=== PATIENT | female | born 1975 | race Caucasian/White ===

== ENCOUNTER 2022-08-16 06:19 | Emergency (ER) | payer SELFPAY ==
[2022-08-16 06:24] VITALS: BP 198/108; PULSE 124; RESP 24; TEMP 36.9; O2SAT 96; BMI 28.3
[2022-08-16 06:26] VITALS: BP 165/108; PULSE 103; RESP 20; O2SAT 98
--- NOTE | 2022-08-16 06:27 | ECG_ITS ---
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 Measurements Intervals [place] Rate: 101 P: 57 MT: 149 QRS: 70 QRSD: 85 T: 66 QT: 346 QTc: 450 Interpretive Statements SINUS TACHYCARDIA No previous ECG available for comparison Electronically Signed On 08-16-2022 12:46:49 CDT by Palak Reinoso M.D. [id number] f
--- NOTE | 2022-08-16 06:28 | XRR_ITS ---
PROCEDURE INFORMATION: Exam: XR Chest Exam date and time: 08/16/2022 6:39 AM Age: 46 years old Clinical indication: Chest wall pain; Additional info: Chest pain TECHNIQUE: Imaging protocol: Radiologic exam of the chest. Views: 1 view. COMPARISON: No relevant prior studies available. FINDINGS: Lungs: Unremarkable. No consolidation. Pleural spaces: Unremarkable. No pleural effusion. No pneumothorax. Heart/Mediastinum: Unremarkable. No cardiomegaly. Bones/joints: Unremarkable. XR/XR chest 1V portable [id number] IMPRESSION: No acute findings.
--- NOTE | 2022-08-16 06:29 | W.ED.CHESTPA ---
HPI - Chest Pain General: Chief Complaint: Chest Pain Stated Complaint: chest pain Time Seen by Provider: 08/16/22 06:28 Source: patient Mode of arrival: ambulatory History of Present Illness: 46-year-old female presents emergency room complaining of chest discomfort. She refers it to the upper chest central and to the left side. There is no radiation into her neck but she does complain of some radiation into her arms. No nausea or vomiting or shortness of breath. Patient is quite tearful and anxious. Chest pain is reproducible with palpation across the upper chest. She had COVID about 4 to 5 weeks ago. She has not had any productive cough or fever. She does smoke she has no history of hypertension hyperlipidemia no family history of heart disease she is not diabetic. MD complaint: chest pain Onset (ago): hour(s) Timing of current episode: episodic Prior episodes: No Onset: during rest Pain location: left chest Pain radiation: right arm and left arm Severity: mild Quality: sharp Relieving factors: nothing Exacerbating factors: palpation Associated symptoms: Deny abdominal pain, diaphoresis, dyspnea, fever(s), leg edema, nausea, palpitations, sense of impending doom, syncope or vomiting Treatment prior to arrival: none Review of Systems Const: Denies: fever(s), chills, fatigue, malaise or diaphoresis ENMT: Denies: throat pain, ear or mastoid pain, nasal discharge or nasal congestion Card: Reports: chest pain; Denies: palpitations, irregular heart rhythm, edema or syncope Resp: Denies: dyspnea GI: Denies: abdominal pain, nausea or vomiting : Denies: flank pain, difficulty voiding, dysuria, urinary frequency or urinary urgency Musc: Denies: neck pain or back pain Skin/Breast: Denies: rash or pruritus PFS ED PFSH: Medical History No pertinent past medical history Surgical History Previous section Social History Smoking and tobacco status: current every day smoker Alcohol intake: never Physical Exam Const: COMMON NORMALS: no acute distress GENERAL APPEARANCE: cooperative and comfortable ORIENTATION/CONSCIOUSNESS: Yes awake, Yes oriented to person, Yes oriented to place and Yes oriented to time HENMT: COMMON NORMALS: normocephalic, atraumatic and hearing grossly normal bilaterally HEAD & SCALP: normocephalic and atraumatic Chest: CHEST: Yes localized rib tenderness with anteroposterior compression Resp: COMMON NORMALS: normal respiratory effort, No retractions, No use of accessory muscles and clear to auscultation bilaterally AUSCULTATION: clear to auscultation bilaterally Cardio: COMMON NORMALS: regular rate, regular rhythm and No murmurs present (Cardio) RATE: regular rate RHYTHM: regular rhythm GI: COMMON NORMALS: Soft to palpation and No hepatosplenomegaly present AUSCULTATION: Yes normoactive bowel sounds PALPATION: Yes Soft to palpation, No Tenderness to palpation present (GI), No Guarding due to palpation present (GI) and Yes No hepatosplenomegaly present Extremity: COMMON NORMALS: normal to inspection, capillary refill normal, no clubbing, cyanosis or edema, no calf tenderness and no pedal edema Neuro: SENSORIUM/ORIENTATION: Yes oriented to person, Yes oriented to place and Yes oriented to time Skin: COMMON NORMALS: no rashes or lesions noted GENERAL SKIN EXAM: no rashes or lesions noted Course Vital Signs: Vital signs: Vital Signs Temperature 98.4 F 08/16/22 06:24 Pulse Rate 82 08/16/22 09:49 Respiratory Rate 14 08/16/22 09:49 Blood Pressure 141/82 08/16/22 09:49 Pulse Oximetry 96 08/16/22 06:50 Oxygen Delivery Me thod 08/16/22 06:50 MDM - Chest Pain Medical Decision Making Troponins negative pain reproducible palpation. Discussed results with patient reviewed EKGs x-rays and imaging. Will discharge patient home set up outpatient stress test advised take baby aspirin daily return if is further problems. Medical Records I reviewed the patient's medical records. Lab Data I reviewed the patient's lab results. : 08/16/22 06:30 08/16/22 06:30 Radiology Impressions Chest X-Ray 08/16/22 06:28 IMPRESSION: No acute findings. Laboratory Results WBC 9.1 10^3/uL (4.0-10.0) 08/16/22 06:30 RBC 4.26 10^6/uL (4.1-5.3) 08/16/22 06:30 Hgb 11.9 g/dL (11.5-15.3) 08/16/22 06:30 Hct 37.4 % (37.0-47.0) 08/16/22 06:30 MCV 87.8 fl (81-99) 08/16/22 06:30 MCH 27.9 pg (28.0-34.0) L 08/16/22 06:30 MCHC 31.8 g/dL (30.0-36.0) 08/16/22 06:30 RDW 13.6 % (12.1-15.1) 08/16/22 06:30 Plt Count 477 10^3/cmm (130-400) H 08/16/22 06:30 MPV 10.0 fL (7.4-10.4) 08/16/22 06:30 Neut % (Auto) 65.9 % 08/16/22 06:30 Lymph % (Auto) 25.4 % 08/16/22 06:30 [place] % (Auto) 6.7 % 08/16/22 06:30 Eos % (Auto) 1.1 % 08/16/22 06:30 Baso % (Auto) 0.7 % 08/16/22 06:30 Neut # (Auto) 6.00 10^3/uL (1.8-7.7) 08/16/22 06:30 Lymph # (Auto) 2.3 10^3/uL (0.8-4.8) 08/16/22 06:30 [place] # (Auto) 0.6 10^3/uL (0.2-0.9) 08/16/22 06:30 Eos # (Auto) 0.1 10^3/uL (0.0-0.8) 08/16/22 06:30 Baso # (Auto) 0.1 10^3/uL (0.0-0.1) 08/16/22 06:30 Nucleated RBC % (auto) 0 % 08/16/22 06:30 Nucleated RBCs # 0.0 /100WBC 08/16/22 06:30 Sodium 137 mmol/L (136-145) 08/16/22 06:30 Potassium 3.5 mmol/L (3.5-5.1) 08/16/22 06:30 Chloride 102 mmol/L (98-107) 08/16/22 06:30 Carbon Dioxide 22 mmol/L (22-29) 08/16/22 06:30 Anion Gap 16.5 (5-19) 08/16/22 06:30 BUN 12 mg/dL (6-20) 08/16/22 06:30 Creatinine 0.9 mg/dL (0.5-0.9) 08/16/22 06:30 GFR Calculation 67.1 mL/min (90-130) L 08/16/22 06:30 Glucose 147 mg/dL (65-115) H 08/16/22 06:30 Calculated Osmolality 286 mOsm/kg (285-295) 08/16/22 06:30 Calcium 8.6 mg/dL (8.5-10.5) 08/16/22 06:30 Total Bilirubin 0.3 mg/dL (0.15-1.2) 08/16/22 06:30 AST 15 U/L (0-32) 08/16/22 06:30 ALT 20 U/L (0-33) 08/16/22 06:30 Alkaline Phosphatase 104 U/L (35-105) 08/16/22 06:30 Troponin T Baseline 21 ng/L (0-10) H 08/16/22 06:30 Troponin T 120 Minute 21.12 ng/L (0-10) H 08/16/22 08:25 Delta Troponin T 0.12 ABS# (0-10) 08/16/22 08:25 Total Protein 7.3 g/dL (6.6-8.7) 08/16/22 06:30 Albumin 4.2 g/dL (3.5-5.2) 08/16/22 06:30 Globulin 3.1 g/dL (1.3-4.6) 08/16/22 06:30 Discharge Plan Discharge Patient Disposition: Home Clinical Impression: Atypical chest pain Condition: Stable Prescriptions: No Action No Known Home Medications Discharge Orders: Discharge ED (Routine); Ordered 08/16/22 Ordered By: Rolan Faustin Discharge Diet: Usual diet Discharge Activity: Resume usual activity Patient Instructions: Opioid Safety, Pain Management Activity Restrictions/Additional Instructions: Avoid exertional activities and exercise until stress test is completed. client program manager will make arrangements for cardiac stress testing as an outpatient and to establish with a primary care physician. Coding Level of Care Code ED Molded Grid And Parts Inspector for Chg Fwd Exam Comprehensive
[2022-08-16 06:40] LABS: Basophils # 0.1 10^3/uL (0.0-0.1); Basophils % 0.7 %; Eosinophils # 0.1 10^3/uL (0.0-0.8); Eosinophils % 1.1 %; Hematocrit 37.4 % (37.0-47.0); Hemoglobin 11.9 g/dL (11.5-15.3); Lymphocytes # 2.3 10^3/uL (0.8-4.8); Lymphocytes % 25.4 %; Mean Corpuscular HGB Conc 31.8 g/dL (30.0-36.0); Mean Corpuscular Hemoglobin 27.9 pg (28.0-34.0); Mean Corpuscular Volume 87.8 fl (81-99); Monocytes # 0.6 10^3/uL (0.2-0.9); Monocytes % 6.7 %; Neutrophils % 65.9 %; Nucleated Red Blood Cells % 0 %; Platelet Count 477 10^3/cmm (130-400); Red Blood Count 4.26 10^6/uL (4.1-5.3); Red Cell Distribution Width 13.6 % (12.1-15.1); White Blood Count 9.1 10^3/uL (4.0-10.0)
[2022-08-16 06:50] VITALS: BP 164/109; RESP 18; O2SAT 96
[2022-08-16 07:00] LABS: Alanine Aminotransferase 20 U/L (0-33); Albumin Level 4.2 g/dL (3.5-5.2); Alkaline Phosphatase 104 U/L (35-105); Anion Gap 16.5 (5-19); Aspartate Amino Transferase 15 U/L (0-32); Blood Urea Nitrogen 12 mg/dL (6-20); Calcium 8.6 mg/dL (8.5-10.5); Carbon Dioxide 22 mmol/L (22-29); Chloride 102 mmol/L (98-107); Globulin 3.1 g/dL (1.3-4.6); Glomerular Filtration Rate 67.1 mL/min (90-130); Glucose 147 mg/dL (65-115); Osmolality Calculated 286 mOsm/kg (285-295); Potassium 3.5 mmol/L (3.5-5.1); Sodium 137 mmol/L (136-145); Total Bilirubin 0.3 mg/dL (0.15-1.2); Total Protein 7.3 g/dL (6.6-8.7); Troponin(5th) Baseline 21 ng/L (0-10)
[2022-08-16] MEDS: acetaminophen 325 mg Tablet 650 MG PO (08:12)
--- NOTE | 2022-08-16 08:28 | ECG_ITS ---
[facility] Test Date: 2022-08-16 Pat Name: Fouzia Yi Department: Room: Gender: Female Food Supervisor: : 1975 Requested By: Rolan Vora Order Number: [id number] Cobos MD: Palak Reinoso M.D. Measurements Intervals [place] Rate: 62 P: 17 ID: [id number] QRS: 59 QRSD: 81 T: 60 QT: 410 QTc: 418 Interpretive Statements SINUS RHYTHM Compared to ECG 08/16/2022 06:27:20 Sinus tachycardia no longer present Electronically Signed On 08-16-2022 20:41:23 CDT by Palak Reinoso M.D. [id number]
[2022-08-16 08:47] LABS: Troponin 5 2HR 21.12 ng/L (0-10)
[2022-08-16 08:49] LABS: Troponin 5 2HR Delta 0.12 ABS# (0-10)
[2022-08-16 09:49] VITALS: BP 141/82; PULSE 82; RESP 14
--- NOTE | 2022-08-17 10:19 | DCPLANNER ---
manager diabetes had message to schedule an outpatient stress test for patient. manager diabetes called to confirm that patient wanted to the stress test scheduled and to confirm who patient sees for primary care. manager diabetes called phone number [phone] unable to speak with patient at this time, a voicemail was left for patient to return window caser phone call.
== END 2022-08-16 09:51 | disposition home or self-care (01) ==
PROVIDERS: Emergency Provider Family Medicine
DX: R07.89 Other chest pain (principal); F17.200 Nicotine dependence, unspecified, uncomplicated
CPT/HCPCS: 71045; 80053; 84484; 85025; 93005; 99285

== ENCOUNTER 2023-01-29 13:09 | Emergency (ER) | payer OTHER, SELFPAY ==
[2023-01-29 13:24] VITALS: BP 162/115; PULSE 99; RESP 17; TEMP 36.8; O2SAT 96; BMI 29.2
--- NOTE | 2023-01-29 13:44 | W.ED.SKABFB ---
HPI - Skin/Abscess/Foreign Bdy General: Chief complaint: Skin/Abscess/Foreign Body Stated complaint: groin mass Time Seen by Provider: 01/29/23 13:37 Source: patient Mode of arrival: ambulatory Limitations: no limitations History of Present Illness: Patient is a nice 47-year-old female with a history of hydradenitis suppurativa here for an abscess near her right groin that she noticed about 48 hours ago. She states since yesterday the lesion has gotten incredibly painful. Patient states she is not on any prescription/suppressant medications at this time for the HS. complaint: abscess/boil Onset (ago): day(s) Tetanus up to date: yes Location: genitals (R groin) Severity: moderate Pain Consistency: constant Relieving factors: none Exacerbating factors: none Context: none Associated symptoms: Reports no associated symptoms; Deny fever(s), nausea or vomiting Treatments prior to arrival: other (warm compresses) Review of Systems Const: Denies: fever(s) GI: Denies: abdominal pain, nausea, vomiting or change in bowel habits : Denies: difficulty voiding, dysuria, urinary frequency or urinary urgency Skin/Breast: Reports: other (abscess R groin) PFS ED PFSH: Medical History No pertinent past medical history Surgical History Previous section Social History Smoking and tobacco status: current every day smoker Alcohol intake: never Physical Exam Const: COMMON NORMALS: no acute distress, patient oriented x3, no limitations, alert and well nourished : GENITAL IMAGES (FEMALE): 1. erythematous indurated very tender nodule noted to R of mons; no fluctuance/drainage Neuro: COMMON NORMALS: patient oriented x3 SENSORIUM/ORIENTATION: Yes alert Skin: NARRATIVE SKIN EXAM: see above Course Vital Signs: Vital signs: Vital Signs Temperature 98.3 F 01/29/23 13:24 Pulse Rate 99 01/29/23 13:24 Respiratory Rate 17 01/29/23 13:24 Blood Pressure 162/115 01/29/23 13:24 Pulse Oximetry 96 01/29/23 13:24 Oxygen Delivery Me thod 01/29/23 13:24 MDM - Skin/Abscess/Foreign Bdy Medicial Decision Making Recommend continuing warm compresses. We will go ahead and place on a tetracycline and give her pain medications. Lesion does not require I&D nor is this indicated for most HS lesions. Return to ED precautions given-otherwise I would like her to follow up with PCP this week. Discharge Plan Discharge Patient Disposition: Home Clinical Impression: Hidradenitis suppurativa Condition: Stable Prescriptions: New doxycycline monohydrate 100 mg capsule 100 mg PO Q12H 10 Days Qty: 20 0RF tramadol 50 mg tablet 50 mg PO Q6H PRN (Reason: pain) Qty: 14 0RF Discharge Orders: Discharge ED (Routine); Ordered 01/29/23 Ordered By: Marion Garcia Referrals: Dayana Toussaint FNP [Primary Care Provider] - Coding Level of Care Code ED Strategic Account Director for Anika Lovell
--- NOTE | 2023-01-29 14:11 | PC.NURSE ---
NOTIFIED PROVIDER RANJAN OF BP OF 163/115 VERBALIZED UNDERSTANDING NO FURTHER ORDERS.
== END 2023-01-29 14:12 | disposition home or self-care (01) ==
PROVIDERS: Emergency Provider Physician Assistant; PCP Nurse Practitioner Family
DX: L73.2 Hidradenitis suppurativa (principal); F17.210 Nicotine dependence, cigarettes, uncomplicated
CPT/HCPCS: 99283

== ENCOUNTER → 2023-08-02 08:04 | Outpatient (BNVA) | payer BC, SELFPAY | PROVIDERS: Visit Provider Family Medicine | DX: Z00.00 Encounter for general adult medical examination without abnormal findings | CPT/HCPCS: 80053; 80061; 83036; 84443; 85025 ==

== ENCOUNTER 2023-08-23 13:02 | Outpatient (CLI) | payer BC, SELFPAY ==
--- NOTE | 2023-08-23 13:13 | US_ITS ---
WS: [id number] ULTRASOUND SOFT TISSUES medial LEFT thigh. HISTORY: ENLARGING LUMP OF L THIGH/? LIPOMA COMPARISON: None available. TECHNIQUE: 2-D and color Doppler imaging is submitted. Ultrasound is directed to the palpable area along the medial LEFT thigh. Palpable area corresponds to a nearly isoechoic elliptical mass in the subcutaneous soft tissues. Mass measures 2.8 x 2.1 x 1.0 c m and is consistent with a lipoma. IMPRESSION: Palpable area along the medial LEFT thigh corresponds to a lipoma.
--- NOTE | 2023-08-23 13:13 | MM_ITS ---
WS: [id number] SCREENING DIGITAL BREAST TOMOSYNTHESIS MAMMOGRAM WITH CAD HISTORY: breast cancer screening COMPARISON: None available. Bilateral CC and MLO with tomosynthesis and synthetic mammography submitted. Computer aided detection analyzed. Breast composition: The breasts are heterogeneously dense, which may obscure small masses. Partially distorted mass measuring 10 x 16 mm in the anterior medial inferior RIGHT breast is identified. No ad ditional mass or distortion. No calcifications. IMPRESSION: MM/[place] [id number] BI-RADS: 0-Incomplete: Need additional imaging evaluation FOLLOW UP: Need Additional Imaging RIGHT breast: Spot compression views (CC and MLO). True ML. Ultrasound to follo w if abnormality persists.
== END 2023-08-23 13:03 | disposition home or self-care (01) ==
LOC: RAD 13:05
PROVIDERS: PCP Family Medicine; Visit Provider Family Medicine
DX: Z12.31 Encounter for screening mammogram for malignant neoplasm of breast (principal)
CPT/HCPCS: 76882; 77063; 77067

== ENCOUNTER 2023-10-11 07:46 | Outpatient (CLI) | payer BC, SELFPAY ==
--- NOTE | 2023-10-11 08:00 | MM_ITS ---
WS: [id number] ADDITIONAL VIEWS RIGHT MAMMOGRAM WITH DIGITAL BREAST TOMOSYNTHESIS. RIGHT BREAST ULTRASOUND HISTORY: 10 x 16 mm mass - anterior medial inferior COMPARISON: 08/23/2023 mammogram. RIGHT MAMMOGRAM: Spot compression views and true ML with digital breast tomosynthesis and SM. Mass persists in the anterior medial RIGHT breast near the 4:00 axis. Mass measures 13.8 x 11.2 cm. M argins are well visualized. Mass is best seen on the CC projection. Mass is slightly of increased den sity compared to the adjacent breast parenchyma. RIGHT BREAST ULTRASOUND 2-D and color Doppler imaging submitted. Solid hypoechoic mass with increased vascularity RIGHT breast, 1 cm from the nipple at 4:00. Mass is lobulated measuring 2.1 x 0.9 x 1.4 cm. There is an additional lobulation of similar echogenicity and solid component measuring 1.1 x 1.1 x 0.7 cm. This may be part of the larger mass or a separate abimael lar mass. IMPRESSION: MM/[place] [id number] BI-RADS: 4-Suspicious Finding-Biopsy Should Be Considered FOLLOW UP: Biopsy Recommended 1. 2 solid hypoechoic masses RIGHT breast at 4:00, 1 cm from the nipple. This m ay be a contiguous mass or 2 separate masses closely associated with each other . Recommend ultrasound-guided biopsy of each mass. Notified Brittney Kaye MD at 10/11/2023 8:59 AM.
--- NOTE | 2023-10-11 08:30 | US_ITS ---
WS: [id number] ADDITIONAL VIEWS RIGHT MAMMOGRAM WITH DIGITAL BREAST TOMOSYNTHESIS. RIGHT BREAST ULTRASOUND HISTORY: 10 x 16 mm mass - anterior medial inferior COMPARISON: 08/23/2023 mammogram. RIGHT MAMMOGRAM: Spot compression views and true ML with digital breast tomosynthesis and SM. Mass persists in the anterior medial RIGHT breast near the 4:00 axis. Mass measures 13.8 x 11.2 cm. M argins are well visualized. Mass is best seen on the CC projection. Mass is slightly of increased den sity compared to the adjacent breast parenchyma. RIGHT BREAST ULTRASOUND 2-D and color Doppler imaging submitted. Solid hypoechoic mass with increased vascularity RIGHT breast, 1 cm from the nipple at 4:00. Mass is lobulated measuring 2.1 x 0.9 x 1.4 cm. There is an additional lobulation of similar echogenicity and solid component measuring 1.1 x 1.1 x 0.7 cm. This may be part of the larger mass or a separate abimael lar mass. IMPRESSION: US/US breast RT limited* [id number] BI-RADS: 4-Suspicious Finding-Biopsy Should Be Considered FOLLOW UP: Biopsy Recommended 1. 2 solid hypoechoic masses RIGHT breast at 4:00, 1 cm from the nipple. This m ay be a contiguous mass or 2 separate masses closely associated with each other . Recommend ultrasound-guided biopsy of each mass. Notified Brittney Kaye MD at 10/11/2023 8:59 AM.
== END 2023-10-11 07:47 | disposition home or self-care (01) ==
LOC: RAD 07:47
PROVIDERS: PCP Family Medicine; Visit Provider Family Medicine
DX: N63.14 Unspecified lump in the right breast, lower inner quadrant (principal); R92.8 Other abnormal and inconclusive findings on diagnostic imaging of breast
CPT/HCPCS: 76642; 77061; G0279

== ENCOUNTER 2023-10-17 11:58 | Outpatient (CLI) | payer BC, SELFPAY ==
--- NOTE | 2023-10-17 13:45 | US_ITS ---
WS: [id number] ULTRASOUND-GUIDED RIGHT BREAST BIOPSY CLINICAL INFORMATION: birad 4 diagnostic mammo - 2 solid masses COMPARISON: 10/11/2023 FINDINGS: The procedure including risks, benefits, and complications were discussed with the patient who agreed to proceed. Using sterile technique patient was prepped and draped in the usual sterile fashion. Aft er 1% lidocaine utilizing real-time ultrasound guidance 5 14-gauge cores were obtained of the RIGHT b reast lesion at the 4 o'clock position. Subsequently a titanium clip was placed in the biopsy cavity. No immediate complications. Pathology demonstrates Final Diagnosis Right breast, 4:00 position, 1 cm from nipple, needle core biopsy: 1. Fibroadenomatoid lesion. 2. Microcalcifications are present. IMPRESSION: 1. Uncomplicated ultrasound-guided RIGHT breast biopsy. 2. The pathology demonstrates fibroadenoma with microcalcifications. No evidence of malignancy. 3. Recommend return to annual screening mammography. US/[place] [id number] BI-RADS: 2-Benign FOLLOW UP: 1 Year Follow-up
== END 2023-10-17 11:59 | disposition home or self-care (01) ==
LOC: RAD 11:58
PROVIDERS: PCP Family Medicine; Visit Provider Family Medicine
DX: D24.1 Benign neoplasm of right breast (principal); R92.0 Mammographic microcalcification found on diagnostic imaging of breast
CPT/HCPCS: 19083; 88305

== ENCOUNTER 2023-11-29 06:55 | Day surgery (SDC) | payer BC, SELFPAY ==
[2023-11-29 07:30] VITALS: BP 132/98; PULSE 96; RESP 16; TEMP 36.3; O2SAT 97
[2023-11-29] MEDS: sodium chloride 0.9% 1,000 ML 30 ML IV (07:40)
[2023-11-29 07:46] LABS: OR HCG Qualitative Urine Negative (Negative)
--- NOTE | 2023-11-29 07:53 | W.PM.OPSUD ---
Surgery/Procedure H&P Update DATE OF PROCEDURE: November 29, 2023 DATE H&P PERFORMED: 11/08/23 H&P UPDATE INFORMATION: I have reviewed H&P completed within last 30 days, I have examined patient prior to procedure, No changes to prior documentation and H&P is in [facility] EMR on date indicated PLANNED PROCEDURE: Operation Date: 11/29/23 08:10 Proposed Procedures p 79887 colon G0121 Screen colon a risk Z12.11(Not Applicable) - Ki Arauz MD
--- NOTE | 2023-11-29 08:01 | ANES.PREANE2 ---
Pre-Anesthetic Assessment Height/Weight: Height 1.57 m Weight 74.389 kg Temp Pulse Resp BP Pulse Ox O2 Del Method 97.3 F L 96 16 132/98 97 Room Air 11/29/23 07:30 11/29/23 07:30 11/29/23 07:30 11/29/23 07:30 11/29/23 07:30 11/29/23 07:30 Preop Diagnosis: screening Operation Date: 11/29/23 08:10 Proposed Procedures p 07536 colon G0121 Screen colon a risk Z12.11(Not Applicable) - Ki Arauz MD Was Beta Vidhi taken within 24 hours: N/A Was Clonidine taken within 24 hours: N/A Last intake: Intake Last Liquid Date 11/28/23 Last Liquid Time 21:30 Last Solid Date 11/27/23 Last Solid Time 20:00 Social No alcohol and No tobacco quit in August 2023 Exam alert and oriented x 3 Airway Submandibular: within normal limits Cervical ROM: within normal limits Mallampati: Class II Dentition: full History/ROS No significant history except as noted Pulmonary None reported CV/HEM None reported None reported Hepatic None reported GI None reported Metabolic None reported Musc/skel None reported Neuropsych Anxiety and Depression Anesthetic Plan ASA status: 2 Anesthesia: MAC Risk of > 500 ml blood loss (7ml/kg in children): No Medications/Allergies Home Medications Medication Instructions Recorded Confirmed Last Taken Type bupropion HCl 150 mg 24 hr tablet, 150 mg PO QAM #30 tabs 08/02/23 11/29/23 11/15/23 Rx extended release (Wellbutrin XL) naproxen 500 mg tablet 500 mg PO BID PRN pain #30 tabs 08/02/23 11/29/23 Unknown Rx Allergies Allergy/AdvReac Type Severity Reaction Status Date / Time No Known Allergies Allergy Verified 08/02/23 07:30 Current Medications Generic Name Dose Route Start Last Admin Trade Name Freq PRN Reason Stop Dose Admin Sodium Chloride 1,000 mls @ 30 mls/hr 11/29/23 07:00 11/29/23 07:40 Sodium Chloride 0.9% IV 30 mls/hr .Q24H BERNICE Administration PFSH Anesthesia Medical History Smoker Hidradenitis suppurativa Surgical History History of 2 sections History of lumpectomy of left breast benign path per report Family History (Updated 11/08/23 @ 13:[address]) Mother Cancer breast Muscular dystrophy Father Cancer prostate Brother Cancer esophageal Muscular dystrophy Son Cancer leukemia Sister Graves disease Hx of colonic polyp Social History (Updated 11/08/23 @ 13:[address]) Smoking and tobacco/nicotine status: former use of tobacco/nicotine Quit status (tobacco/nicotine): considering quitting Alcohol intake: never Substance/Drug Use: never Household members: spouse Marital status: Number of children: 4 Number of grandchildren: 3 Current occupational status: employed Current occupation: medical imaging technician Special soheila needs: No Agree to transfusion: Yes Data Anesthesia Cardiac Studies: No Data to Display
[2023-11-29 08:45] VITALS: BP 118/80; PULSE 84; RESP 16; TEMP 36.3; O2SAT 95
[2023-11-29 08:59] VITALS: BP 112/91; PULSE 81; RESP 16; O2SAT 98
--- NOTE | 2023-11-29 13:15 | ANE.PACU2 ---
Inpatient post-anesthesia follow up: Airway intact: Yes Vital signs: Temperature 97.3 F Pulse Rate 81 Respiratory Rate 16 Blood Pressure 112/91 Pulse Oximetry 98 Oxygen Delivery Me thod Room Air Oxygen Flow Rate Fraction of Inspir ed Oxygen Hydration adequate: Yes Nausea and vomiting: No Pain level: 2 Mental status: Baseline
== END 2023-11-29 09:15 | disposition home or self-care (01) ==
PROVIDERS: Anesthesiology; PCP Family Medicine; Visit Provider Surgery
PROC: 0DJD8ZZ Inspection of Lower Intestinal Tract, Via Natural or Artificial Opening Endoscopic (ICD-10-PCS; CPT 45378; principal; 2023-11-29 08:10)
DX: Z12.11 Encounter for screening for malignant neoplasm of colon (principal); Z87.891 Personal history of nicotine dependence
CPT/HCPCS: 45378; 81025; 84703; J2704; J7030

== ENCOUNTER → 2024-01-10 15:19 | Outpatient (BNVA) | payer BC, SELFPAY | PROVIDERS: PCP Family Medicine; Visit Provider Family Medicine | DX: R92.8 Other abnormal and inconclusive findings on diagnostic imaging of breast (principal); N63.10 Unspecified lump in the right breast, unspecified quadrant; Z12.4 Encounter for screening for malignant neoplasm of cervix | CPT/HCPCS: 87624 ==

== ENCOUNTER 2024-02-15 08:44 | Emergency (ER) | payer BC, SELFPAY ==
[2024-02-15 08:59] VITALS: BP 170/101; PULSE 85; RESP 17; TEMP 36.6; O2SAT 96; BMI 30.2
--- NOTE | 2024-02-15 09:00 | ECG_ITS ---
[facility] Test Date: 2024-02-15 Pat Name: Fouzia Yi Department: Room: Gender: Female Diesel Engine Specialist: : 1975 Requested By: Rolan Vora Order Number: [id number] Chandrika MD: Carter Lees M.D. Measurements Intervals [place] Rate: 70 P: 37 IN: 147 QRS: 67 QRSD: 82 T: 63 QT: 382 QTc: 413 Interpretive Statements SINUS RHYTHM Compared to ECG 08/16/2022 08:53:05 No significant changes Electronically Signed On 02-16-2024 15:56:51 CDT by Carter Lees M.D. [id number]
--- NOTE | 2024-02-15 09:27 | ED_ITS ---
HPI - Headache 2 General: Chief Complaint: Headache Stated Complaint: High blood pressure Time Seen by Provider: 02/15/24 08:49 Source: patient Mode of arrival: ambulatory History of Present Illness: 48-year-old female presents emergency ro om complaining of a headache. She went to work today she works at the [employer] began getting a headache with some nausea they checked her blood pressure was mildly elevated in the 150s over 100. No shortness of breath no chest pain. She is not on anything for hypertension in the past no recent head trauma. She has noticed some mild photophobia. MD elicited complaint: headache Associated symptoms: Deny chest pain, fever(s) or rash Review of Systems 2 Const: Denies: fever(s) or chills Card: Denies: chest pain Resp: Denies: dyspnea GI: Denies: abdominal pain : Denies: dysuria, urinary frequency or urinary urgency Musc: Denies: neck pain or back pain Skin/Breast: Denies: rash PFSH ED 2 PFSH: Medical History Smoker Hidradenitis suppurativa Surgical History History of 2 sections History of lumpectomy of left breast benign path per report Family History Mother Cancer breast Muscular dystrophy Father Cancer prostate Brother Cancer esophageal Muscular dystrophy Son Cancer leukemia Sister Graves disease Hx of colonic polyp Social History Smoking and tobacco/nicotine status: former use of tobacco/nicotine Quit status (tobacco/nicotine): considering quitting Alcohol intake: never Substance/Drug Use: never Household members: spouse Marital status: Number of children: 4 Number of grandchildren: 3 Current occupational status: employed Current occupation: junior accountant bookkeeper Special soheila needs: No Agree to transfusion: Yes Physical Exam 2 Const: COMMON NORMALS: no acute distress GENERAL APPEARANCE: cooperative and comfortable ORIENTATION/CONSCIOUSNESS: Yes awake, Yes oriented to person, Yes oriented to place and Yes oriented to time HENMT: COMMON NORMALS: normocephalic, atraumatic and hearing grossly normal bilaterally HEAD & SCALP: normocephalic and atraumatic Resp: COMMON NORMALS: normal respiratory effort, No retractions, No use of accessory muscles and clear to auscultation bilaterally AUSCULTATION: clear to auscultation bilaterally Cardio: COMMON NORMALS: regular rate, regular rhythm and No murmurs present (Cardio) RATE: regular rate RHYTHM: regular rhythm GI: COMMON NORMALS: Soft to palpation and No hepatosplenomegaly present A USCULTATION: Yes normoactive bowel sounds PALPATION: Yes Soft to palpation, No Tenderness to palpation present (GI), No Guarding due to palpation present (GI) and Yes No hepatosplenomegaly present Extremity: COMMON NORMALS: normal to inspection, capillary refill normal, no clubbing, cyanosis or edema, no calf tenderness and no pedal edema Neuro: SENSORIUM/ORIENTATION: Yes oriented to person, Yes oriented to place and Yes oriented to time Skin: COMMON NORMALS: no rashes or lesions noted GENERAL SKIN EXAM: no rashes or lesions noted Course 2 Vital Signs: Vital signs: Vital Signs Temperature 97.8 F 02/15/24 08:59 Pulse Rate 81 02/15/24 11:38 Respiratory Rate 17 02/15/24 11:38 Blood Pressure 132/90 02/15/24 11:38 Pulse Oximetry 97 02/15/24 11:38 Oxygen Delivery Me thod Room Air 02/15/24 09:30 MDM - Headache Medical Decision Making Headache improved with blood pressure control. Patient discharged home promethazine use as needed for recurrence of headaches. I encouraged her to follow-up with her blood pressure with her primary care doctor. Return if is further problems Medical Records I reviewed the patient's medical records. Lab Data I reviewed the patient's lab results. 02/15/24 09:12 02/15/24 09:12 Laboratory Results WBC 7.08 10^3/uL (3.29-11.43) 02/15/24 09:12 RBC 4.46 10^6/uL (3.85-5.65) 02/15/24 09:12 Hgb 10.80 g/dL (11.27-16.99) L 02/15/24 09:12 Hct 35.7 % (36-47) L 02/15/24 09:12 MCV 80.0 fl (85-98) L 02/15/24 09:12 MCH 24.2 pg (27-33) L 02/15/24 09:12 MCHC 30.3 g/dL (30-55) 02/15/24 09:12 RDW 16.1 % (12.1-15.1) H 02/15/24 09:12 Plt Count 444 10^3/cmm (157-399) H 02/15/24 09:12 MPV 9.8 fL (7.4-10.4) 02/15/24 09:12 Neut % (Auto) 82.5 % 02/15/24 09:12 Lymph % (Auto) 12.3 % 02/15/24 09:12 [place] % (Auto) 4.2 % 02/15/24 09:12 Eos % (Auto) 0.1 % 02/15/24 09:12 Baso % (Auto) 0.6 % 02/15/24 09:12 Neut # (Auto) 5.84 10^3/uL (1.8-7.7) 02/15/24 09:12 Lymph # (Auto) 0.9 10^3/uL (0.8-4.8) 02/15/24 09:12 [place] # (Auto) 0.3 10^3/uL (0.2-0.9) 02/15/24 09:12 Eos # (Auto) 0.0 10^3/uL (0.0-0.8) 02/15/24 09:12 Baso # (Auto) 0.0 10^3/uL (0.0-0.1) 02/15/24 09:12 Nucleated RBC % (auto) 0 % 02/15/24 09:12 Nucleated RBCs # 0.0 /100WBC 02/15/24 09:12 Sodium 138 mmol/L (136-145) 02/15/24 09:12 Potassium 4.1 mmol/L (3.5-5.1) 02/15/24 09:12 Chloride 102 mmol/L (98-107) 02/15/24 09:12 Carbon Dioxide 25 mmol/L (22-29) 02/15/24 09:12 Anion Gap 15.1 (5-19) 02/15/24 09:12 BUN 10 mg/dL (6-20) 02/15/24 09:12 Creatinine 0.7 mg/dL (0.5-0.9) 02/15/24 09:12 GFR Calculation 88.9 mL/min (90-130) L 02/15/24 09:12 Glucose 108 mg/dL (65-115) 02/15/24 09:12 Calculated Osmolality 286 mOsm/kg (285-295) 02/15/24 09:12 Calcium 8.7 mg/dL (8.5-10.5) 02/15/24 09:12 Total Bilirubin 0.2 mg/dL (0.15-1.2) 02/15/24 09:12 AST 15 U/L (0-32) 02/15/24 09:12 ALT 15 U/L (0-33) 02/15/24 09:12 Alkaline Phosphatase 110 U/L (35-105) H 02/15/24 09:12 Total Protein 7.4 g/dL (6.6-8.7) 02/15/24 09:12 Albumin 4.3 g/dL (3.5-5.2) 02/15/24 09:12 Globulin 3.1 g/dL (1.3-4.6) 02/15/24 09:12 No radiology studies performed this visit Discharge Plan Discharge Patient Disposition: Home Clinical Impression: Headache, Elevated blood pressure, situational Condition: Stable Prescriptions: New promethazine 25 mg tablet 25 mg PO Q6H PRN (Reason: headache) Qty: 20 0RF No Action naproxen 500 mg tablet 500 mg PO BID PRN (Reason: pain) Qty: 30 0RF Discharge Orders: Discharge ED (Routine); Ordered 02/15/24 Ordered By: Rolan Faustin Referrals: Brittney Kaye MD [Primary Care Provider] - Discharge Diet: Usual diet Discharge Activity: Resume usual activity Patient Instructions: Opioid Safety, Pain Management Activity Restrictions/Additional Instructions: Thank you for choosing [facility] for your healthcare needs today. Please realize this is an emergency room and that we are providing you with a medical screening exam and this may not be complete and all inclusive of all the testing and or work up that you may need to determine your ailment or severity of your illness. It is very important that you follow up as instructed or that you return to the Emergency Department should you have concerns or if your condition changes or worsens in any way. You were seen today for a headache. Your blood pressure is mildly elevated but not at a point where we would recommend starting medications from the ER setting. You should monitor your blood pressure at home if it is persistently elevated you should see your doctor. If your headaches become persistent or recurrent you can either return to the emergency room or see your primary care physician Coding Level of Care Code ED Social Science Professor for Anika Lovell
[2024-02-15 09:30] VITALS: BP 133/94; PULSE 75; RESP 14; O2SAT 99
[2024-02-15 09:41] LABS: Basophils % 0.6 %; Eosinophils % 0.1 %; Hematocrit 35.7 % (36-47); Lymphocytes # 0.9 10^3/uL (0.8-4.8); Lymphocytes % 12.3 %; Mean Corpuscular HGB Conc 30.3 g/dL (30-55); Mean Corpuscular Hemoglobin 24.2 pg (27-33); Mean Platelet Volume 9.8 fL (7.4-10.4); Monocytes # 0.3 10^3/uL (0.2-0.9); Monocytes % 4.2 %; Neutrophils # 5.84 10^3/uL (1.8-7.7); Neutrophils % 82.5 %; Nucleated Red Blood Cells % 0 %; Platelet Count 444 10^3/cmm (157-399); Red Blood Count 4.46 10^6/uL (3.85-5.65); Red Cell Distribution Width 16.1 % (12.1-15.1); White Blood Count 7.08 10^3/uL (3.29-11.43)
[2024-02-15 10:12] LABS: Alanine Aminotransferase 15 U/L (0-33); Albumin Level 4.3 g/dL (3.5-5.2); Alkaline Phosphatase 110 U/L (35-105); Anion Gap 15.1 (5-19); Aspartate Amino Transferase 15 U/L (0-32); Blood Urea Nitrogen 10 mg/dL (6-20); Calcium 8.7 mg/dL (8.5-10.5); Carbon Dioxide 25 mmol/L (22-29); Chloride 102 mmol/L (98-107); Globulin 3.1 g/dL (1.3-4.6); Glomerular Filtration Rate 88.9 mL/min (90-130); Glucose 108 mg/dL (65-115); Osmolality Calculated 286 mOsm/kg (285-295); Potassium 4.1 mmol/L (3.5-5.1); Sodium 138 mmol/L (136-145); Total Bilirubin 0.2 mg/dL (0.15-1.2); Total Protein 7.4 g/dL (6.6-8.7)
[2024-02-15] MEDS: ketorolac 30 mg/mL INJ IVP (10:12)
[2024-02-15 10:13] VITALS: BP 143/98; PULSE 79; RESP 13; O2SAT 98
[2024-02-15 11:38] VITALS: BP 132/90; PULSE 81; RESP 17; O2SAT 97
== END 2024-02-15 11:25 | disposition home or self-care (01) ==
PROVIDERS: Emergency Provider Family Medicine; PCP Family Medicine
DX: R51.9 Headache, unspecified (principal); R03.0 Elevated blood-pressure reading, without diagnosis of hypertension; Z87.891 Personal history of nicotine dependence
CPT/HCPCS: 36415; 80053; 85025; 93005; 96374; 99284; J1885

== ENCOUNTER → 2024-02-27 11:48 | Outpatient (BNVA) | payer BC, SELFPAY | PROVIDERS: PCP Family Medicine; Visit Provider Family Medicine | DX: N93.9 Abnormal uterine and vaginal bleeding, unspecified (principal); N92.5 Other specified irregular menstruation; Z80.3 Family history of malignant neoplasm of breast | CPT/HCPCS: 81162; 84443; 85025 ==

== ENCOUNTER 2024-02-28 17:16 | Emergency (ER) | payer BC, SELFPAY ==
[2024-02-28 17:22] VITALS: BP 156/94; PULSE 99; RESP 18; TEMP 36.4; O2SAT 99; BMI 30.5
--- NOTE | 2024-02-28 17:28 | USR_ITS ---
PROCEDURE INFORMATION: Exam: US Nonobstetric Pelvis; Complete Exam date and time: 02/28/2024 5:46 PM Age: 48 years old Clinical indication: Condition or disease; Other: Bleeding; Additional info: Vaginal bleeding LABS AND CLINICAL REPORTS: Last menstrual period start date: Unknown TECHNIQUE: Imaging protocol: Transabdominal pelvic nonobstetric ultrasound. Complete exam. Real time ultrasound with image documentation. COMPARISON: US soft tissue/extremity [id number] 08/23/2023 1:55 PM FINDINGS: Uterus: Uterus measures 8.2 x 4.9 x 3.4 cm. Endometrium measures 7 mm. Mildly hypoechoic focus is seen within the myometrium of the uterus adjacent to the endometrium, measuring 1.1 x 1 x 1.2 cm. Findings suggest small uterine fibroid or leiomyoma. Incidental note is also made of scar in the lower uterine segment. Cervix: Several nabothian cysts noted the largest measuring 1.3 cm. Right ovary/adnexa: Right ovary measures 1.7 x 2.4 x 2 cm and appears unremarkable. Right ovarian flow is seen. Arterial flow demonstrates PSV 12 cm/s and RI 0.51. Left ovary/adnexa: Left ovary measures 3.1 x 2.1 x 2.4 cm and demonstrates hypoechoic to anechoic cyst 2.6 x 1.7 x 2.2 cm. Left ovarian flow is seen. Arterial flow demonstrates PSV 10 cm/s and RI 0.47. Intraperitoneal space: No free fluid is seen. Urinary bladder: Not adequately visualized US/US pelv w/transvag [id number] IMPRESSION: 1. Findings suggesting 1.1 x 1 x 1.2 cm uterine fibroid. 2. Dominant or prominent left ovarian cyst 2.6 x 1.7 x 2.2 cm. 3. Nabothian cysts.
--- NOTE | 2024-02-28 17:33 | ED_ITS ---
HPI - Recheck/Abnormal Lab/Rx 2 General: Chief Complaint: Recheck/Abnormal Lab/Rx Stated Complaint: dr royal, abnormal labs Time Seen by Provider: 02/28/24 17:28 Source: patient Mode of arrival: ambulatory Limitations: no limitations History of Present Illness: 48-year-old female states she has been h aving vaginal bleeding since early January. States she had blood drawn yesterday her hemoglobin was 8.5 and her physician called a and told her she go to the ER to get checked out because she had heavier bleeding today she had some slight lightheadedness she denies any abdominal pain or fever. Review of Systems 2 Const: Reports: fatigue; Denies: fever(s), chills, body aches or change in appetite ENMT: Denies: throat pain or dental pain Card: Denies: chest pain Resp: Denies: dyspnea GI: Denies: abdominal pain, nausea, vomiting or diarrhea : Reports: vaginal bleeding Musc: Denies: neck pain or back pain Skin/Breast: Denies: rash Neuro: Denies: headache(s) PFSH ED 2 PFSH: Medical History Smoker Hidradenitis suppurativa Surgical History History of 2 sections History of lumpectomy of left breast benign path per report Family History Mother Cancer breast Muscular dystrophy Father Cancer prostate Brother Cancer esophageal Muscular dystrophy Son Cancer leukemia Sister Graves disease Hx of colonic polyp Social History Smoking and tobacco/nicotine status: former use of tobacco/nicotine Quit status (tobacco/nicotine): considering quitting Alcohol intake: never Substance/Drug Use: never Household members: spouse Marital status: Number of children: 4 Number of grandchildren: 3 Current occupational status: employed Current occupation: [employer] consultant Special soheila needs: No Agree to transfusion: Yes Physical Exam 2 Const: COMMON NORMALS: no acute distress, patient oriented x3 and healthy appearing HENMT: COMMON NORMALS: normocephalic and atraumatic HEAD & SCALP: n ormocephalic and atraumatic Eye: COMMON NORMALS: conjunctivae normal CONJUNCTIVA: Yes conjunctivae normal Neck/C-Spine: COMMON NORMALS: full ROM and supple Chest: COMMONS NORMALS: normal inspection of the chest Resp: COMMON NORMALS: normal respiratory effort Cardio: COMMON NORMALS: regular rate, regular rhythm and No murmurs present (Cardio) RATE: regular rate RHYTHM: regular rhythm GI: COMMON NORMALS: Normal to inspection, nondistended, normoactive bowel sounds present, Soft to palpation, non-tender and no masses PALPATION: Yes Soft to palpation Extremity: COMMON NORMALS: normal to inspection and full ROM Neuro: COMMON NORMALS: patient oriented x3, moves all extremities and no focal motor deficits Psych: COMMON NORMALS: mental status grossly normal, Normal thought process present and cooperative THOUGHT PROCESS: Normal thought process present Skin: COMMON NORMALS: no rashes or lesions noted and no wounds GENERAL SKIN EXAM: no rashes or lesions noted Course 2 Vital Signs: Vital signs: Vital Signs Temperature 97.6 F 02/28/24 17:22 Pulse Rate 84 02/28/24 19:00 Respiratory Rate 18 02/28/24 17:22 Blood Pressure 148/97 02/28/24 19:00 Pulse Oximetry 94 02/28/24 19:00 Oxygen Delivery Me thod Room Air 02/28/24 17:53 MDM - Recheck/Abnormal Lab/Rx Medical Decision Making Patient presents with abnormal uterine bleeding ultrasound did show uterine fibroids here her blood pressure here has been stable she had no lightheadedness or syncope here hemoglobin 7.9 she does not level to transfuse she does have an appointment with OB in 11 days and informed her she probably is follow-up with her PCP next week to have an H&H rechecked I feel she stable for discharge at this time I informed her if she has worsening weakness or bleeding she is return to the ER she understands agrees to plan. Lab Data 02/28/24 17:45 02/28/24 17:45 Radiology Impressions Pelvic/Transvag US 02/28/24 17:28 IMPRESSION: 1. Findings suggesting 1.1 x 1 x 1.2 cm uterine fibroid. 2. Dominant or prominent left ovarian cyst 2.6 x 1.7 x 2.2 cm. 3. Nabothian cysts. Laboratory Results WBC 5.84 10^3/uL (3.29-11.43) 02/28/24 17:45 RBC 3.22 10^6/uL (3.85-5.65) L 02/28/24 17:45 Hgb 7.90 g/dL (11.27-16.99) L 02/28/24 17:45 Hct 26.1 % (36-47) L 02/28/24 17:45 MCV 81.1 fl (85-98) L 02/28/24 17:45 MCH 24.5 pg (27-33) L 02/28/24 17:45 MCHC 30.3 g/dL (30-55) 02/28/24 17:45 RDW 16.4 % (12.1-15.1) H 02/28/24 17:45 Plt Count 451 10^3/cmm (157-399) H 02/28/24 17:45 MPV 9.4 fL (7.4-10.4) 02/28/24 17:45 Neut % (Auto) 62.8 % 02/28/24 17:45 Lymph % (Auto) 28.1 % 02/28/24 17:45 [place] % (Auto) 7.2 % 02/28/24 17:45 Eos % (Auto) 1.0 % 02/28/24 17:45 Baso % (Auto) 0.7 % 02/28/24 17:45 Neut # (Auto) 3.67 10^3/uL (1.8-7.7) 02/28/24 17:45 Lymph # (Auto) 1.6 10^3/uL (0.8-4.8) 02/28/24 17:45 [place] # (Auto) 0.4 10^3/uL (0.2-0.9) 02/28/24 17:45 Eos # (Auto) 0.1 10^3/uL (0.0-0.8) 02/28/24 17:45 Baso # (Auto) 0.0 10^3/uL (0.0-0.1) 02/28/24 17:45 Nucleated RBC % (auto) 0 % 02/28/24 17:45 Nucleated RBCs # 0.0 /100WBC 02/28/24 17:45 Sodium 144 mmol/L (136-145) 02/28/24 17:45 Potassium 4.2 mmol/L (3.5-5.1) 02/28/24 17:45 Chloride 108 mmol/L (98-107) H 02/28/24 17:45 Carbon Dioxide 27 mmol/L (22-29) 02/28/24 17:45 Anion Gap 13.2 (5-19) 02/28/24 17:45 BUN 16 mg/dL (6-20) 02/28/24 17:45 Creatinine 0.9 mg/dL (0.5-0.9) 02/28/24 17:45 GFR Calculation 66.5 mL/min (90-130) L 02/28/24 17:45 Glucose 106 mg/dL (65-115) 02/28/24 17:45 Calculated Osmolality 300 mOsm/kg (285-295) H 02/28/24 17:45 Calcium 8.8 mg/dL (8.5-10.5) 02/28/24 17:45 Total Bilirubin 0.2 mg/dL (0.15-1.2) 02/28/24 17:45 AST 16 U/L (0-32) 02/28/24 17:45 ALT 16 U/L (0-33) 02/28/24 17:45 Alkaline Phosphatase 100 U/L (35-105) 02/28/24 17:45 Total Protein 6.8 g/dL (6.6-8.7) 02/28/24 17:45 Albumin 4.1 g/dL (3.5-5.2) 02/28/24 17:45 Globulin 2.7 g/dL (1.3-4.6) 02/28/24 17:45 All radiology interpretation(s) finalized by discharge Discharge Plan Discharge Patient Disposition: Home Clinical Impression: Fibroid, uterine, Vaginal bleeding Condition: Stable Prescriptions: No Action naproxen 500 mg tablet 500 mg PO BID PRN (Reason: pain) Qty: 30 0RF promethazine 25 mg tablet 25 mg PO Q6H PRN (Reason: headache) Qty: 20 0RF Discharge Orders: Discharge ED (Routine); Ordered 02/28/24 Ordered By: Kiki Jansen Referrals: Birttney Kaye MD [Primary Care Provider] - 1-3 days Discharge Diet: Advance as tolerated Discharge Activity: Resume usual activity Patient Instructions: Abnormal (Dysfunctional) Uterine Bleeding (ED), Uterine Fibroids (ED) Coding Level of Care Code ED Manager Ent for Chg Liliya
[2024-02-28] MEDS: sodium chloride 0.9% 1,000 ML 999 ML IV (17:47)
[2024-02-28 17:52] LABS: Basophils % 0.7 %; Eosinophils # 0.1 10^3/uL (0.0-0.8); Hematocrit 26.1 % (36-47); Lymphocytes # 1.6 10^3/uL (0.8-4.8); Lymphocytes % 28.1 %; Mean Corpuscular HGB Conc 30.3 g/dL (30-55); Mean Corpuscular Hemoglobin 24.5 pg (27-33); Mean Corpuscular Volume 81.1 fl (85-98); Mean Platelet Volume 9.4 fL (7.4-10.4); Monocytes # 0.4 10^3/uL (0.2-0.9); Monocytes % 7.2 %; Neutrophils # 3.67 10^3/uL (1.8-7.7); Neutrophils % 62.8 %; Nucleated Red Blood Cells % 0 %; Platelet Count 451 10^3/cmm (157-399); Red Blood Count 3.22 10^6/uL (3.85-5.65); Red Cell Distribution Width 16.4 % (12.1-15.1); White Blood Count 5.84 10^3/uL (3.29-11.43)
[2024-02-28 17:53] VITALS: BP 144/88; PULSE 89; O2SAT 100
[2024-02-28 18:15] LABS: Alanine Aminotransferase 16 U/L (0-33); Albumin Level 4.1 g/dL (3.5-5.2); Alkaline Phosphatase 100 U/L (35-105); Anion Gap 13.2 (5-19); Aspartate Amino Transferase 16 U/L (0-32); Blood Urea Nitrogen 16 mg/dL (6-20); Calcium 8.8 mg/dL (8.5-10.5); Carbon Dioxide 27 mmol/L (22-29); Chloride 108 mmol/L (98-107); Creatinine Clr Calc Pharmacy 72.0501; Globulin 2.7 g/dL (1.3-4.6); Glomerular Filtration Rate 66.5 mL/min (90-130); Glucose 106 mg/dL (65-115); Osmolality Calculated 300 mOsm/kg (285-295); Potassium 4.2 mmol/L (3.5-5.1); Sodium 144 mmol/L (136-145); Total Bilirubin 0.2 mg/dL (0.15-1.2); Total Protein 6.8 g/dL (6.6-8.7)
[2024-02-28 19:00] VITALS: BP 148/97; PULSE 84; O2SAT 94
[2024-02-28 19:50] VITALS: BP 135/102; PULSE 79; RESP 16; O2SAT 98
== END 2024-02-28 19:38 | disposition home or self-care (01) ==
PROVIDERS: Emergency Provider Emergency Medicine; PCP Family Medicine
DX: N93.9 Abnormal uterine and vaginal bleeding, unspecified (principal); D25.9 Leiomyoma of uterus, unspecified; Z87.891 Personal history of nicotine dependence
CPT/HCPCS: 36415; 76830; 76856; 80053; 85025; 99284; J7030

== ENCOUNTER 2024-02-29 14:22 | Emergency (ER) | payer BC, SELFPAY ==
[2024-02-29 14:26] VITALS: BP 146/95; PULSE 83; RESP 18; TEMP 36.8; O2SAT 99; BMI 30.2
[2024-02-29 14:37] VITALS: BP 129/92; BP 142/100; BP 159/92; PULSE 104; PULSE 81; PULSE 88
--- NOTE | 2024-02-29 14:37 | ED_ITS ---
HPI - General Adult 2 General: Chief complaint: Vaginal Bleeding Stated complaint: Vaginal bleeding Time Seen by Provider: 02/29/24 14:33 History of Present Illness: 48-year-old female who presents emergenc y room with worsening vaginal bleeding and lower abdominal pain. She was seen in the emergency room last night. She says her hemoglobin was 7.2. When I reviewed it was 7.9. Previous measurement before that was 8.2 and before that was 10. She says she has been having a headache and feeling dizzy. She is not hypotensive on presentation and not tachycardic. He says she called her primary who told her to come back to the emergency room. Review of Systems 2 Narrative: Constitutional symptoms: Negative except as documented in HPI. Skin symptoms: Negative except as documented in HPI. Eye symptoms: Negative except as documented in HPI. ENMT symptoms: Negative except as documented in HPI. Respiratory symptoms: Negative except as documented in HPI. Cardiovascular symptoms: Negative except as documented in HPI. Gastrointestinal symptoms: Negative except as documented in HPI. Genitourinary symptoms: Negative except as documented in HPI. Musculoskeletal symptoms: Negative except as documented in HPI. Neurologic symptoms: Negative except as documented in HPI. Psychiatric symptoms: Negative except as documented in HPI. Endocrine symptoms: Negative except as documented in HPI. PFSH ED 2 PFSH: Medical History Smoker Hidradenitis suppurativa Surgical History History of 2 sections History of lumpectomy of left breast benign path per report Family History Mother Cancer breast Muscular dystrophy Father Cancer prostate Brother Cancer esophageal Muscular dystrophy Son Cancer leukemia Sister Graves disease Hx of colonic polyp Social History Smoking and tobacco/nicotine status: former use of tobacco/nicotine Quit status (tobacco/nicotine): considering quitting Alcohol intake: never Substance/Drug Use: never Household members: spouse Marital status: Number of children: 4 Number of grandchildren: 3 Current occupational status: employed Current occupation: assistant associate professor Special soheila needs: No Agree to transfusion: Yes Physical Exam 2 Narrative: EXAM NARRATIVE: General: Alert, no acute distress. Skin: warm and dry Head: Normocephalic Neck: Trachea midline Eye: Extraocular movements are intact. Ears, nose, mouth and throat: Oral mucosa moist Respiratory: Respirations are non-labored Musculoskeletal: Normal ROM Neurological: Alert and oriented to person, place, time, and situation, No focal neurological deficit observed. Psychiatric: Cooperative, patient is tearful Course 2 Vital Signs: Vital signs: Vital Signs Temperature 98.2 F 02/29/24 14:26 Pulse Rate 73 02/29/24 15:30 Respiratory Rate 18 02/29/24 14:26 Blood Pressure 144/80 02/29/24 15:30 Pulse Oximetry 98 02/29/24 15:30 Oxygen Delivery Me thod Room Air 02/29/24 14:26 MDM - General Adult Medical Decision Making Medical decision making: Differential diagnosis including but not limited to and based on the above HPI, review of systems and physical exam: Patient has known uterine fibroids. She has been having issues with dysfunctional bleeding for some time. Main concern today would be anemia that might require transfusion. Also with her new symptoms of headache and malaise would have concern that she is developed some sort of infection such as flu or COVID were urinary tract infection. Orders placed to evaluate differential diagnosis based on the above differential, HPI and physical exam Lab Review: Laboratory results were reviewed and interpreted by myself the emergency room physician. Patient has stable anemia. She is 8.2 today. 7.9 yesterday. 8.2 on a previous. No renal failure. Her BUN and creatinine are 12 and 0.8. She does appear to have urinary tract infection. She has 15-25 whites in her urine. Reexamination: Patient remained stable. No increased work of breathing. No altered mental status. I discussed findings with the patient's. She understands. Fluids and antibiotics in the emergency room. Lab Data 02/29/24 14:38 02/29/24 14:38 Laboratory Results WBC 6.72 10^3/uL (3.29-11.43) 02/29/24 14:38 RBC 3.34 10^6/uL (3.85-5.65) L 02/29/24 14:38 Hgb 8.20 g/dL (11.27-16.99) L 02/29/24 14:38 Hct 27.0 % (36-47) L 02/29/24 14:38 MCV 80.8 fl (85-98) L 02/29/24 14:38 MCH 24.6 pg (27-33) L 02/29/24 14:38 MCHC 30.4 g/dL (30-55) 02/29/24 14:38 RDW 16.4 % (12.1-15.1) H 02/29/24 14:38 Plt Count 497 10^3/cmm (157-399) H 02/29/24 14:38 MPV 9.6 fL (7.4-10.4) 02/29/24 14:38 Neut % (Auto) 61.7 % 02/29/24 14:38 Lymph % (Auto) 29.8 % 02/29/24 14:38 [place] % (Auto) 6.0 % 02/29/24 14:38 Eos % (Auto) 1.3 % 02/29/24 14:38 Baso % (Auto) 0.9 % 02/29/24 14:38 Neut # (Auto) 4.15 10^3/uL (1.8-7.7) 02/29/24 14:38 Lymph # (Auto) 2.0 10^3/uL (0.8-4.8) 02/29/24 14:38 [place] # (Auto) 0.4 10^3/uL (0.2-0.9) 02/29/24 14:38 Eos # (Auto) 0.1 10^3/uL (0.0-0.8) 02/29/24 14:38 Baso # (Auto) 0.1 10^3/uL (0.0-0.1) 02/29/24 14:38 Nucleated RBC % (auto) 0 % 02/29/24 14:38 Nucleated RBCs # 0.0 /100WBC 02/29/24 14:38 PT 12.50 SECONDS (12.1-14.9) 02/29/24 14:38 INR 0.91 (0.8-1.2) 02/29/24 14:38 APTT 25.1 SECONDS (23.9-36.7) 02/29/24 14:38 Sodium 142 mmol/L (136-145) 02/29/24 14:38 Potassium 4.1 mmol/L (3.5-5.1) 02/29/24 14:38 Chloride 107 mmol/L (98-107) 02/29/24 14:38 Carbon Dioxide 26 mmol/L (22-29) 02/29/24 14:38 Anion Gap 13.1 (5-19) 02/29/24 14:38 BUN 12 mg/dL (6-20) 02/29/24 14:38 Creatinine 0.8 mg/dL (0.5-0.9) 02/29/24 14:38 GFR Calculation 76.2 mL/min (90-130) L 02/29/24 14:38 Glucose 101 mg/dL (65-115) 02/29/24 14:38 Calculated Osmolality 294 mOsm/kg (285-295) 02/29/24 14:38 Calcium 9.6 mg/dL (8.5-10.5) 02/29/24 14:38 Urine Color Yellow (Yellow) 02/29/24 15:23 Urine Appearance Bloody (CLEAR) A 02/29/24 15:23 Urine pH 6 (5-7) 02/29/24 15:23 Ur Specific [place] 1.015 (1.005-1.030) 02/29/24 15:23 Urine Protein 1+ (Negative) H 02/29/24 15:23 Urine Glucose (UA) Norm (Normal) 02/29/24 15:23 Urine Ketones Negative (Negative) 02/29/24 15:23 Urine Blood 3+ (Negative) H 02/29/24 15:23 Urine Nitrate Negative (Negative) 02/29/24 15:23 Urine Bilirubin Neg (Negative) 02/29/24 15:23 Urine Urobilinogen Neg mg/dL (Negative) 02/29/24 15:23 Ur Leukocyte Esterase Negative (Negative) 02/29/24 15:23 Urine RBC Too numerous to cnt /hpf (0-2) H 02/29/24 15:23 Urine WBC 15-25 /hpf (0-5) H 02/29/24 15:23 Ur Squamous Epith Cells 5-10 /hpf (0-5) H 02/29/24 15:23 Amorphous Sediment Not Reportable 02/29/24 15:23 Urine Bacteria 1+ /hpf (NONE) H 02/29/24 15:23 Influenza Type A Ag negative (Negative) 02/29/24 14:38 Influenza Type B Ag negative (Negative) 02/29/24 14:38 SARS-CoV-2 Ag (Rapid) negative (Negative) 02/29/24 14:38 Blood Type B Positive 02/29/24 14:38 Rho(D) Type Rh positive 02/29/24 14:38 Antibody Screen Negative 02/29/24 14:38 No radiology studies performed this visit Other Data Assessment and plan: Dysfunctional uterine bleeding Anemia Urinary tract infection Dehydration -Patient's hemoglobin has remained stable. She does not require transfusion today. -500 mL normal saline bolus for dehydration. -IV Rocephin for urinary tract infection. - Discharged home - Discussed findings and plan with patient. Answered any questions. - All laboratory values were reviewed and interpreted personally by myself, the ER physician - All imaging was reviewed and interpreted personally by myself, the ER physician. - Evaluation and treatment of this problem were appropriate in the emergency setting Discharge Plan Discharge Patient Disposition: Home Clinical Impression: Dysfunctional uterine bleeding, Anemia, Urinary tract infection Condition: Stable Prescriptions: New norethindrone-ethin estradiol 1-35 mg-mcg tablet 1 tab PO DAILY Qty: 40 0RF Rx Instructions: 3 tabs for 3 days, 2 tabs for 3 days, then daily cefdinir 300 mg capsule 300 mg PO BID 5 Days Qty: 10 0RF No Action naproxen 500 mg tablet 500 mg PO BID PRN (Reason: pain) Qty: 30 0RF acyclovir 400 mg tablet 400 mg PO .5XD acetaminophen 500 mg Tablet 1,000 mg PO Q6H PRN (Reason: Pain) promethazine 25 mg tablet 25 mg PO Q6H PRN (Reason: Nausea) Discharge Orders: Discharge ED (Routine); Ordered 02/29/24 Ordered By: Devi Mcbride Referrals: Brittney Kaye MD [Primary Care Provider] - (You have been screened and evaluated and felt safe for discharge. Health conditions do change or evolve sometimes and as such it is important that you follow up with your Primary Doctor to be re checked, 3-5 days is a general good time frame for follow up. You are always welcome to return to the ED for re assessment if your symptoms are worsening or you have new concerns) Discharge Diet: Usual diet Discharge Activity: Increase activity as tolerated Patient Instructions: Abnormal (Dysfunctional) Uterine Bleeding (ED), Urinary Tract Infection - Women Coding Level of Care Code ED Ladle Car Operator for Chg Liliya
[2024-02-29 15:00] VITALS: BP 129/92; PULSE 88; O2SAT 96
[2024-02-29 15:01] LABS: Basophils # 0.1 10^3/uL (0.0-0.1); Basophils % 0.9 %; Eosinophils # 0.1 10^3/uL (0.0-0.8); Eosinophils % 1.3 %; Lymphocytes % 29.8 %; Mean Corpuscular HGB Conc 30.4 g/dL (30-55); Mean Corpuscular Hemoglobin 24.6 pg (27-33); Mean Corpuscular Volume 80.8 fl (85-98); Mean Platelet Volume 9.6 fL (7.4-10.4); Monocytes # 0.4 10^3/uL (0.2-0.9); Neutrophils # 4.15 10^3/uL (1.8-7.7); Neutrophils % 61.7 %; Nucleated Red Blood Cells % 0 %; Platelet Count 497 10^3/cmm (157-399); Red Blood Count 3.34 10^6/uL (3.85-5.65); Red Cell Distribution Width 16.4 % (12.1-15.1); White Blood Count 6.72 10^3/uL (3.29-11.43)
[2024-02-29 15:02] LABS: INR 0.91 (0.8-1.2)
[2024-02-29 15:03] LABS: Partial Thromboplastin Time 25.1 SECONDS (23.9-36.7)
[2024-02-29 15:07] LABS: Anion Gap 13.1 (5-19); Blood Urea Nitrogen 12 mg/dL (6-20); Calcium 9.6 mg/dL (8.5-10.5); Carbon Dioxide 26 mmol/L (22-29); Chloride 107 mmol/L (98-107); Creatinine Clr Calc Pharmacy 80.5692; Glomerular Filtration Rate 76.2 mL/min (90-130); Glucose 101 mg/dL (65-115); Osmolality Calculated 294 mOsm/kg (285-295); Potassium 4.1 mmol/L (3.5-5.1); Sodium 142 mmol/L (136-145)
[2024-02-29] MEDS: ketorolac 30 mg/mL INJ IVP (15:19)
[2024-02-29 15:21] LABS: Influenza A by IFA negative (Negative); Influenza B by IFA negative (Negative)
[2024-02-29 15:22] LABS: SARS Covid-2 Antigen negative (Negative)
[2024-02-29 15:30] VITALS: BP 144/80; PULSE 73; O2SAT 98
[2024-02-29] MEDS: sodium chloride 0.9% 500 ML 999 ML IV (15:35)
[2024-02-29] MEDS: ondansetron 2 mg/ML SDV 2 mL 8 MG IVP (15:35)
[2024-02-29 16:00] VITALS: BP 121/78; PULSE 71; O2SAT 98
[2024-02-29 16:09] LABS: Glucose Urine UA Norm (Normal); Protein Urine 1+ (Negative); Specific Gravity, Urine 1.015 (1.005-1.030); Urine Appearance Bloody (CLEAR); Urine Color Yellow (Yellow); pH Urine 6 (5-7)
[2024-02-29 16:10] LABS: Bilirubin Urine Neg (Negative); Blood Urine 3+ (Negative); Ketones Urine Negative (Negative); Leukocyte Esterase Urine Negative (Negative); Nitrate Urine Negative (Negative); Urobilinogen Urine Neg (Negative)
[2024-02-29 16:11] LABS: RBC Urine TOO NUMEROUS TO CNT /hpf (0-2)
[2024-02-29 16:12] LABS: Bacteria Urine 1+ /hpf; WBC Urine 15-25 /hpf (0-5)
[2024-02-29 16:13] LABS: Add Urine Culture? Yes
[2024-02-29] MEDS: cefTRIAXone 1,000 MG in sodium chloride 0.9% (plus) 50 ML 100 MG IV (16:27)
[2024-02-29 16:51] VITALS: BP 131/90; PULSE 80; O2SAT 99
== END 2024-02-29 16:52 | disposition home or self-care (01) ==
PROVIDERS: Emergency Provider Emergency Medicine; PCP Family Medicine
DX: N93.8 Other specified abnormal uterine and vaginal bleeding (principal); D64.9 Anemia, unspecified; N39.0 Urinary tract infection, site not specified; Z87.891 Personal history of nicotine dependence; Z11.52 Encounter for screening for COVID-19
CPT/HCPCS: 80048; 81001; 85025; 85610; 85730; 86850; 86900; 87086; 87426; 87804; 96365; 96375; 99284; J0696; J1885; J2405; J7040

== ENCOUNTER 2024-04-10 09:42 | Day surgery (SDC) | payer BC, SELFPAY ==
[2024-04-10] VITALS (9 sets, daily range): BP systolic 100–154; BP diastolic 68–93; PULSE 63–91; RESP 10–18; TEMP 36.1–36.4; O2SAT 93–100; BMI 28.8
--- NOTE | 2024-04-10 01:39 | W.PM.OPSFHP ---
Same Day Surgery H&P Indication for Procedure/HPI DATE OF PROCEDURE: April 10, 2024 CHIEF COMPLAINT/INDICATIONFOR SURGICAL PROCEDURE: abnormal uterine bleeding PREOP DIAGNOSIS: abnormal uterine bleeding PLANNED PROCEDURE: Operation Date: 04/10/24 11:25 Proposed Procedures p Hysteroscopy Hysteroscopy w/ Endometrial Sampling(Not Applicable) - Raymond Brady MD s Poylpectomy possible [address](Not Applicable) - Raymond Brady MD 48 y.o. h/o BTL began to bleeding heavily January 27, 2024 has not stopped bleeding now scheduled for hysteroscopy, endometrial sampling, possible endometrial polypectomy Medications/Allergies* Home Medications Medication Instructions Recorded Confirmed Type acyclovir 400 mg tablet 400 mg PO .5XD 02/29/24 04/09/24 History Allergies/Adverse Reactions Allergy/AdvReac Type Severity Reaction Status Date / Time No Known Allergies Allergy Verified 04/09/24 08:46 Pertinent History/Comorbid Conditions* Medical History (Updated 03/26/24 @ 03:29 by Raymond Brady MD) Smoker Hidradenitis suppurativa Surgical History (Updated 08/02/23 @ 07:35 by Brittney Kaye MD) History of 2 sections History of lumpectomy of left breast benign path per report Family History (Updated 03/10/24 @ 09:12 by Julia Hobson LPN) Colon cancer Father Breast cancer Mother Thyroid disease Sister Denies family history of Ovarian cancer Prostate cancer Diabetes Heart disease Hypercholesteremia Hypertension Uterine cancer Stroke Pertinent Exam Findings alert, oriented x 3, clear to auscultation bilaterally and regular rate & rhythm Pertinent Data 01-10-24 Pap NILM, negative HPV Pelvic sono 02-28-24 uterus 8 x 5 x 3 cm Endometrium 7 mm 1 cm uterine fibroid Normal ovaries Recommendations Surgery/Procedure today Coding Level of Care Code Acute Code for Chg Fwd Time Spent (min) 20
[2024-04-10 10:21] LABS: OR HCG Qualitative Urine Negative (Negative)
--- NOTE | 2024-04-10 10:48 | P.ANESASSM_ITS ---
Pre-Anesthetic Assessment Height/Weight: Height 1.57 m Preop Diagnosis: abnormal uterine bleeding Operation Date: 04/10/24 11:25 Proposed Procedures p Hysteroscopy Hysteroscopy w/ Endometrial Sampling(Not Applicable) - Raymond Brady MD s Poylpectomy possible [address](Not Applicable) - Raymond Brady MD Familial anesthetic complications: none Was Beta Vidhi taken within 24 hours: N/A Was Clonidine taken within 24 hours: N/A Social No alcohol and No tobacco (H/O smoking) Exam alert, oriented x 3 and regular rate & rhythm Airway Submandibular: within normal limits Cervical ROM: within normal limits Mallampati: Class II Dentition: full Pulmonary Chronic Obstructive Pulmonary Disease Metabolic Morbid Obesity Anesthetic Plan ASA status: 2 Anesthesia: General Medications/Allergies Home Medications Medication Instructions Recorded Confirmed Last Taken Type acyclovir 400 mg tablet 400 mg PO .5XD 02/29/24 04/10/24 1 Month Ago History ~03/11/24 norethindrone 1 mg-ethinyl 1 tab PO DAILY #40 tabs 02/29/24 04/10/24 04/09/24 Rx estradiol 35 mcg tablet acetaminophen 325 mg tablet 650 mg PO QID PRN Pain 04/10/24 04/10/24 04/09/24 History (Tylenol) Allergies Allergy/AdvReac Type Severity Reaction Status Date / Time No Known Allergies Allergy Verified 04/10/24 10:27 [facility] Anesthesia Medical History Smoker Hidradenitis suppurativa Surgical History History of 2 sections History of lumpectomy of left breast benign path per report Family History Mother Breast cancer Father Colon cancer Sister Thyroid disease Denies family history of Ovarian cancer Prostate cancer Diabetes Heart disease Hypercholesteremia Hypertension Uterine cancer Stroke Female Reproductive History Date of last menstrual period: 04/07/24 Data Anesthesia Cardiac Studies: No Data to Display
[2024-04-10] MEDS: sodium chloride 0.9% 1,000 ML 30 ML IV (10:51)
--- NOTE | 2024-04-10 10:51 | W.PM.OPSUD ---
Surgery/Procedure H&P Update DATE OF PROCEDURE: April 10, 2024 DATE H&P PERFORMED: 04/10/24 H&P UPDATE INFORMATION: I have reviewed H&P completed within last 30 days, I have examined patient prior to procedure and No changes to prior documentation PREOP DIAGNOSIS: abnormal uterine bleeding PLANNED PROCEDURE: Operation Date: 04/10/24 11:25 Proposed Procedures p Hysteroscopy Hysteroscopy w/ Endometrial Sampling(Not Applicable) - Raymond Brady MD s Poylpectomy possible [id number](Not Applicable) - Raymond Brady MD
--- NOTE | 2024-04-10 12:25 | PM.OP ---
Operative Report Date of procedure: April 10, 2024 Pre-op diagnosis: abnormal uterine bleeding Post-op diagnosis: same Post-op findings: small amount of endometrial tissue 3-4 cm broad-based polyp Procedure done: Hysteroscopy Endometrial sampling and polypectomy with Myosure curettage of uterus Implants: none Specimens removed/disposition: endometrial tissue Surgeon: Raymond Brady MD Anesthesia: MAC Estimated blood loss (mL): 0 Complications: none Condition: stable Disposition: PACU Brief History: 48 y.o. with abnormal uterine bleeding Procedure: Informed consent signed. Patient was taken to the operating room. Anesthesia was induced. Patient was placed in dorsolithotomy position, prepped and draped for hysteroscopy. A bivalve speculum was placed in the vagina. The anterior lip of the cervix was grasped with a sharp-toothed tenaculum. The cervix was serially dilated with Hegar dilators. . A hysteroscope was placed into the endometrial cavity. The endometrial cavity was seen small amount of endometrial tissue. There was a 3-4 cm smooth-contoured broad-based endometrial polyp. A Myosure was then inserted and endometrium was sampled. The polyp was removed. The endometrial cavity was seen to be intact. The hysteroscope and Myosure were then removed. Endometrial curettage was done with a sharp curette. Endometrial tissue was sent to pathology. The sharp-toothed tenaculum was removed. There was no bleeding from the endometrial cavity or cervix. The patient was then placed supine and awakened and taken to the PACU. Postop condition: stable EBL: none Sponge and instruments counts were normal x 2 Complications: none
--- NOTE | 2024-04-10 13:56 | ANE.PACU2 ---
Inpatient post-anesthesia follow up: Airway intact: Yes Vital signs: Temperature 97.0 F Pulse Rate 79 Respiratory Rate 18 Blood Pressure 116/71 Pulse Oximetry 100 Oxygen Delivery Me thod Room Air Oxygen Flow Rate 6 Fraction of Inspir ed Oxygen Hydration adequate: Yes Nausea and vomiting: No Pain level: 2 Mental status: Baseline
== END 2024-04-10 13:11 | disposition home or self-care (01) ==
PROVIDERS: Anesthesiology; PCP Family Medicine; Visit Provider Obstetrics & Gynecology
PROC: 0UJD8ZZ Inspection of Uterus and Cervix, Via Natural or Artificial Opening Endoscopic (ICD-10-PCS; CPT 58555; principal; 2024-04-10 11:15)
DX: N84.0 Polyp of corpus uteri (principal); N93.9 Abnormal uterine and vaginal bleeding, unspecified
CPT/HCPCS: 58558; 81025; 88305; J1100; J1200; J2250; J2405; J2704; J3010; J7030

== ENCOUNTER 2024-05-18 08:20 | Emergency (ER) | payer BC, SELFPAY ==
[2024-05-18 08:26] VITALS: BP 152/97; PULSE 92; RESP 18; TEMP 36.7; O2SAT 98; BMI 29.2
--- NOTE | 2024-05-18 08:30 | ED_ITS ---
HPI - Back Pain/Injury General: Chief Complaint: Back Pain/Injury Stated Complaint: back pain Time Seen by Provider: 05/18/24 08:22 Source: patient Mode of arrival: ambulatory Limitations: no limitations History of Present Illness: 48-year-old female states she had bent d own to pick something up this morning and started feeling like she is having spasms in her low back. States it is much worse with any movement and unable to bend down. She denies any midline pain states she is still having bilateral low back denies any radiation of pain denies any bowel or bladder incontinence Associated symptoms: Deny abdominal pain, chills, fever(s), nausea or vomiting Review of Systems Const: Denies: fever(s), chills, body aches or change in appetite ENMT: Denies: throat pain or dental pain Card: Denies: chest pain Resp: Denies: dyspnea GI: Denies: abdominal pain, nausea, vomiting or diarrhea Musc: Reports: back pain; Denies: neck pain Skin/Breast: Denies: rash Neuro: Denies: headache(s) PFSH ED PFSH: Medical History Smoker Hidradenitis suppurativa Surgical History History of 2 sections History of lumpectomy of left breast benign path per report Family History Mother Breast cancer Father Colon cancer Sister Thyroid disease Denies family history of Ovarian cancer Prostate cancer Diabetes Heart disease Hypercholesteremia Hypertension Uterine cancer Stroke Physical Exam Const: COMMON NORMALS: no acute distress, patient oriented x3 and healthy appearing HENMT: COMMON NORMALS: normocephalic and atraumatic HEAD & SCALP: normocephalic and atraumatic Neck/C-Spine: COMMON NORMALS: full ROM and supple Chest: COMMONS NORMALS: normal inspection of the chest Resp: COMMON NORMALS: normal respiratory effort Cardio: COMMON NORMALS: regular rate, regular rhythm and No murmurs present (Cardio) RATE: regular rate RHYTHM: regular rhythm Back/Pelvis: OTHER: paraspinal low back tenderness no midline tenderness Extremity: COMMON NORMALS: normal to inspection and full ROM Neuro: COMMON NORMALS: patient oriented x3, moves all extremities and no focal motor deficits Psych: COMMON NORMALS: mental status grossly normal, Normal thought process present and cooperative THOUGHT PROCESS: Normal thought process present Skin: COMMON NORMALS: no rashes or lesions noted and no wounds GENERAL SKIN EXAM: no rashes or lesions noted Course Vital Signs: Vital signs: Vital Signs Temperature 98.1 F 05/18/24 08:26 Pulse Rate 92 05/18/24 08:26 Respiratory Rate 18 05/18/24 08:26 Blood Pressure 152/97 05/18/24 08:26 Pulse Oximetry 98 05/18/24 08:26 Oxygen Delivery Me thod Room Air 05/18/24 08:26 MDM - Back Pain/Injury Medical Decision Making Patient presents here with low back pain likely muscle spasms she is well- appearing here we will prescribe her Naprosyn along with Robaxin she is follow- up with PCP return if worsening. Medical Records I reviewed the patient's medical records. No radiology studies performed this visit Discharge Plan Discharge Patient Disposition: Home Clinical Impression: Strain of lumbar region Condition: Stable Prescriptions: New methocarbamol 750 mg tablet 750 mg PO Q6H PRN (Reason: spasms) Qty: 20 0RF Naprosyn 500 mg tablet 500 mg PO BID PRN (Reason: pain) Qty: 20 0RF No Action prednisone 10 mg tablet See Rx Instructions PO DAILY Qty: 13 0RF Rx Instructions: 20 mg PO daily X 4 days, then 10 mg PO daily X 4 days, then 5 mg PO daily X 4 days then stop acyclovir 400 mg tablet 400 mg PO .5XD Tylenol 325 mg Tablet 650 mg PO QID PRN (Reason: Pain) Discharge Orders: Discharge ED (Routine); Ordered 05/18/24 Ordered By: Kiki Jansen Referrals: Brittney Kaye MD [Primary Care Provider] - 4-7 days Discharge Diet: Advance as tolerated Discharge Activity: Resume usual activity Patient Instructions: Muscle Spasm (ED), Back Pain (ED) Coding Level of Care Code ED Personal Fitness Trainer for Anika Lovell
[2024-05-18] MEDS: methocarbamol 750 mg Tablet 1500 MG PO (08:35)
[2024-05-18] MEDS: HYDROcodone-acetaminophen 7.5-325 mg Tablet 1 TAB PO (08:35)
[2024-05-18] MEDS: dexamethasone 10 mg/mL INJ IM (08:36)
[2024-05-18 08:42] VITALS: BP 144/87; PULSE 77; O2SAT 97
[2024-05-18 09:15] VITALS: BP 128/95; PULSE 80; O2SAT 98
== END 2024-05-18 09:15 | disposition home or self-care (01) ==
PROVIDERS: Emergency Provider Emergency Medicine; PCP Family Medicine
DX: S39.012A Strain of muscle, fascia and tendon of lower back, initial encounter (principal); X50.1XXA Overexertion from prolonged static or awkward postures, initial encounter
CPT/HCPCS: 96372; 99284; J1100